=== PATIENT | male | born 1940 | race Caucasian/White ===

== ENCOUNTER 2017-06-24 02:14 | Outpatient (CLI) | payer MEDICARE, MEDICAID | END 2017-06-24 23:59 | disposition home or self-care (01) | LOC: DIABETIC 02:14 | PROVIDERS: ATTEND Specialist | DX: E11.65 Type 2 diabetes mellitus with hyperglycemia (principal); I10 Essential (primary) hypertension; F17.200 Nicotine dependence, unspecified, uncomplicated | CPT/HCPCS: G0108 ==

== ENCOUNTER 2017-08-05 10:02 | Day surgery (SDC) | payer MEDICARE, MEDICAID ==
[2017-07-31 13:16] LABS: BASOPHILS % (AUTO) 0.4 % (0-1); EOSINOPHILS # (AUTO) 0.2 X10'3 (0-0.9); EOSINOPHILS % (AUTO) 2.5 % (0-6); HEMATOCRIT 42.8 % (42.0-52.0); HEMOGLOBIN 14.5 g/dl (14.0-17.9); LYMPHOCYTES # (AUTO) 0.7 X10'3 (1.1-4.8); LYMPHOCYTES % (AUTO) 8.2 % (21-51); MEAN CORPUSCULAR HEMOGLOBIN 29.3 PG (27.0-31.0); MEAN CORPUSCULAR VOLUME 86.1 FL (78-98); MEAN PLATELET VOLUME 7.2 FL (7.4-10.4); MONOCYTES # (AUTO) 0.7 X10'3 (0-0.9); MONOCYTES % (AUTO) 8.5 % (2-12); NEUTROPHILS # (AUTO) 6.4 X10'3 (1.8-7.7); NEUTROPHILS % (AUTO) 80.4 % (42-75); PLATELET COUNT 209 X10'3 (140-440); RED BLOOD COUNT 4.96 X10'6 (4.70-6.10); RED CELL DISTRIBUTION WIDTH 14.1 % (11.5-14.5)
[2017-07-31 13:27] LABS: PARTIAL THROMBOPLASTIN TIME 27 SECONDS (22-32); PROTHROMBIN TIME 10.1 SECONDS (9.0-12.0)
[2017-07-31 13:31] LABS: ALANINE AMINOTRANSFERASE 24 U/L (12-78); ALBUMIN 3.2 G/DL (3.4-5.0); ALBUMIN/GLOBULIN RATIO 0.8 (1.1-1.5); ALKALINE PHOSPHATASE 117 IU/L (46-116); ANION GAP 8 (8-16); ASPARTATE AMINO TRANSFERASE 16 U/L (10-37); BILIRUBIN,TOTAL 0.5 MG/DL (0.1-1.0); BLOOD UREA NITROGEN 30 MG/DL (7-18); BUN/CREATININE RATIO 17.4 (5.4-32.0); CALCIUM 8.8 MG/DL (8.5-10.1); CHLORIDE 109 MMOL/L (99-107); CREATININE 1.72 MG/DL (0.60-1.10); GLUCOSE 92 MG/DL (70-104); POTASSIUM 4.3 MMOL/L (3.5-5.1); SODIUM 146 MMOL/L (135-145); TOTAL CARBON DIOXIDE 29.2 MMOL/L (24-32); TOTAL PROTEIN 7.2 G/DL (6.4-8.2); eGFR 39 ML/MIN
[~2017-08-05] VITALS: Ht 172.7 cm; Wt 102.3 kg
[2017-08-05] VITALS (12 sets, daily range): BP systolic 142–179; BP diastolic 59–93
[2017-08-05] MEDS ORDERED: normal saline 1000ml 1,000 ML IV SCH ×2 (10:40→14:20)
[2017-08-05] MEDS ORDERED: nitroGLYCERIN 0.4mg SUBLingual tab SL PRN (10:40)
[2017-08-05] MEDS ORDERED: LORazepam 0.5 MG tablet PO PRN (10:40)
[2017-08-05] MEDS ORDERED: diphenhydrAMINE 25mg capsule PO PRN (10:40)
[2017-08-05] MEDS ORDERED: ATOR20TA PO (11:45)
[2017-08-05] MEDS ORDERED: OXYB5TAB11 PO (11:45)
[2017-08-05] MEDS ORDERED: PIOG45TA19 PO (11:45)
[2017-08-05] MEDS ORDERED: SIMV20TA5 PO (11:45)
[2017-08-05] MEDS ORDERED: HYDR12.5 PO (11:45)
[2017-08-05] MEDS ORDERED: LINA5TAB4 PO (11:45)
[2017-08-05] MEDS ORDERED: ASPI-12 PO (11:45)
[2017-08-05] MEDS ORDERED: ENAL20TA75 PO (11:45)
[2017-08-05] MEDS ORDERED: NIAC500C12 PO (11:45)
[2017-08-05] MEDS ORDERED: heparin 1,000 UNITS/NS 500ml 500 ML ONE ×2 (11:46)
[2017-08-05] MEDS ORDERED: midazolam 2 mg/2 ml injection ONE (11:46)
[2017-08-05] MEDS ORDERED: fentaNYL/PF 50MCG/1 ML 2ML syringe ONE (11:46)
[2017-08-05] MEDS ORDERED: iohexol 350MG/ML 100ml bottle IV ONE ×2 (11:46→13:01)
[2017-08-05] MEDS ORDERED: iohexol 350 MG/ML 50ML vial IV ONE ×2 (11:46→12:50)
[2017-08-05] MEDS ORDERED: LIDOcaine 1%/PF (10mg/ml) 5ml vial ONE ×2 (11:46→12:40)
[2017-08-05] MEDS ORDERED: nitroGLYCERIN-Tridil 50MG/D5W 250 ML IV ONE (12:34)
[2017-08-05] MEDS ORDERED: verapamil 2.5 mg/ml inj IV ONE (12:49)
[2017-08-05] MEDS ORDERED: heparin 1,000unit/ml 10ml vial 0 ML ONE (12:49)
[2017-08-05] MEDS ORDERED: hydrALAZINE 20mg/ml inj. IV ONE (13:26)
[2017-08-05] MEDS ORDERED: ondansetron/PF 4mg/2ml inj IV PRN (14:20)
[2017-08-05] MEDS ORDERED: OXAZEpam 15mg capsule PO PRN (14:20)
[2017-08-05] MEDS ORDERED: HYDROcodone/acetaminophen 5mg/325mg tablet PO PRN (14:20)
[2017-08-05] MEDS ORDERED: HYDROcodone/acetaminophen 10/325mg tab PO PRN (14:20)
[2017-08-05] MEDS ORDERED: proCHLORperazine 10 MG/2 ml inj IV PRN (14:20)
== END 2017-08-05 20:00 | disposition home or self-care (01) ==
LOC: SSTAY O 10:02
PROVIDERS: ATTEND Internal Medicine Cardiovascular Disease
DX: I25.10 Atherosclerotic heart disease of native coronary artery without angina pectoris (principal); I10 Essential (primary) hypertension; E78.5 Hyperlipidemia, unspecified; E11.9 Type 2 diabetes mellitus without complications; I65.21 Occlusion and stenosis of right carotid artery; I70.203 Unspecified atherosclerosis of native arteries of extremities, bilateral legs; I77.89 Other specified disorders of arteries and arterioles; Z86.73 Personal history of transient ischemic attack (TIA), and cerebral infarction without residual deficits; Z79.82 Long term (current) use of aspirin; Z95.1 Presence of aortocoronary bypass graft; Z87.891 Personal history of nicotine dependence; Z98.890 Other specified postprocedural states; Z86.79 Personal history of other diseases of the circulatory system; Z79.899 Other long term (current) drug therapy
CPT/HCPCS: 36415; 71046; 75630; 80053; 82948; 85025; 85610; 85730; 93458; 99152; 99153; A6257; C1769; J0360; J1644; J2001; J2250; J3010; J3490; J7030; Q0163; Q9967

== ENCOUNTER 2018-01-05 01:23 | Outpatient (CLI) | payer MEDICARE, MEDICAID ==
[~2018-01-05 01:23] MED LIST: ASPI-12 PO; ATOR20TA PO; ENAL20TA75 PO; HYDR12.5 PO; LINA5TAB4 PO; NIAC500C12 PO; OXYB5TAB11 PO; PIOG45TA19 PO; SIMV20TA5 PO
== END 2018-01-05 23:59 | disposition home or self-care (01) ==
LOC: DIABETIC 01:23
PROVIDERS: ATTEND Specialist
DX: E11.65 Type 2 diabetes mellitus with hyperglycemia (principal); I10 Essential (primary) hypertension; Z79.899 Other long term (current) drug therapy
CPT/HCPCS: G0108

== ENCOUNTER 2018-04-07 01:19 | Outpatient (CLI) | payer MEDICARE, MEDICAID | END 2018-04-07 23:59 | disposition home or self-care (01) | LOC: DIABETIC 01:19 | PROVIDERS: ATTEND Specialist | DX: E11.65 Type 2 diabetes mellitus with hyperglycemia (principal); I10 Essential (primary) hypertension; Z79.82 Long term (current) use of aspirin | CPT/HCPCS: G0108 ==

== ENCOUNTER 2018-07-13 04:19 | Outpatient (CLI) | payer MEDICARE, MEDICAID | END 2018-07-13 23:59 | disposition home or self-care (01) | LOC: DIABETIC 04:19 | PROVIDERS: ATTEND Specialist | DX: E11.65 Type 2 diabetes mellitus with hyperglycemia (principal); I10 Essential (primary) hypertension; Z79.82 Long term (current) use of aspirin | CPT/HCPCS: G0108 ==

== ENCOUNTER 2018-10-13 01:56 | Outpatient (CLI) | payer MEDICARE, MEDICAID | END 2018-10-13 23:59 | disposition home or self-care (01) | LOC: DIABETIC 01:56 | PROVIDERS: ATTEND Specialist | DX: E11.65 Type 2 diabetes mellitus with hyperglycemia (principal); I10 Essential (primary) hypertension; Z86.73 Personal history of transient ischemic attack (TIA), and cerebral infarction without residual deficits; Z79.82 Long term (current) use of aspirin | CPT/HCPCS: G0108 ==

== ENCOUNTER 2019-03-14 16:22 | Emergency (ER) | payer MEDICARE, MEDICAID ==
[~2019-03-14] VITALS: Ht 172.7 cm; Wt 88.6 kg
[~2019-03-14 16:22] MED LIST changes: -OXYB5TAB11 PO; +OXYB5TAB16 PO
[2019-03-14 16:31] VITALS: BP 116/62
--- NOTE | 2019-03-14 18:29 | NUR ---
called joana to nurse christina dias pt that he is going back and catheter is removed and culture sample is sent glenda the lab.nurse denies any concern or question.
--- NOTE | 2019-03-14 19:53 | NUR ---
pt still waiting for ambulance .ambulance busy rgt now.
== END 2019-03-15 00:11 ==
LOC: ER 16:23
DX: T82.7XXA Infection and inflammatory reaction due to other cardiac and vascular devices, implants and grafts, initial encounter (principal); Z99.2 Dependence on renal dialysis; Z79.82 Long term (current) use of aspirin; Z79.899 Other long term (current) drug therapy; Y83.8 Other surgical procedures as the cause of abnormal reaction of the patient, or of later complication, without mention of misadventure at the time of the procedure; Y92.89 Other specified places as the place of occurrence of the external cause
CPT/HCPCS: 87070; 99284

== ENCOUNTER 2019-03-18 08:49 | Day surgery (SDC) | payer OTHER, MEDICAID ==
[~2019-03-18 08:49] MED LIST changes: +SIMV-42 PO; -SIMV20TA5 PO
[2019-03-18] MEDS ORDERED: LIDOcaine 1%/PF 5ML 10 MG/ML VIAL ONE (09:31)
[2019-03-18] MEDS ORDERED: heparin 1,000unit/ml 10ml vial 10 ML ONE (09:41)
[2019-03-18] MEDS ORDERED: fentaNYL/PF 50MCG/1 ML 2ML syringe ONE (09:41)
[2019-03-18] MEDS ORDERED: midazolam 2 mg/2 ml injection ONE (09:41)
[2019-03-18 10:30] VITALS: BP 117/74
[2019-03-18 10:45] VITALS: BP 118/69
[2019-03-18 11:00] VITALS: BP 122/68
[2019-03-18 11:15] VITALS: BP 122/66
[2019-03-18 11:30] VITALS: BP 116/63
[2019-03-18 20:59] VITALS: BP 111/69
== END 2019-03-18 11:45 ==
LOC: SSTAY O 08:49
PROVIDERS: ATTEND Radiology Diagnostic Radiology
DX: E11.22 Type 2 diabetes mellitus with diabetic chronic kidney disease (principal); I12.0 Hypertensive chronic kidney disease with stage 5 chronic kidney disease or end stage renal disease; N18.6 End stage renal disease; I25.10 Atherosclerotic heart disease of native coronary artery without angina pectoris; I69.354 Hemiplegia and hemiparesis following cerebral infarction affecting left non-dominant side; Z99.3 Dependence on wheelchair; Z85.528 Personal history of other malignant neoplasm of kidney; Z79.899 Other long term (current) drug therapy; Z98.49 Cataract extraction status, unspecified eye; Z90.5 Acquired absence of kidney; Z87.891 Personal history of nicotine dependence
CPT/HCPCS: 36558; 76937; 77001; 99152; 99153; C1750; C1894; J1644; J2250; J3010; A9270

== ENCOUNTER 2019-05-04 11:54 | Day surgery (SDC) | payer MEDICARE, MEDICAID ==
[~2019-05-04] VITALS: Ht 172.7 cm; Wt 64.9 kg
[2019-05-04] MEDS ORDERED: normal saline 1000ml 1,000 ML IV SCH (12:20)
[2019-05-04 12:21] VITALS: BP 129/68
[2019-05-04] MEDS ORDERED: PRAV40TA PO (12:45)
[2019-05-04] MEDS ORDERED: FAMO-128 PO (12:45)
[2019-05-04] MEDS ORDERED: ASCO500C15 PO (12:45)
[2019-05-04] MEDS ORDERED: DOCU100C41 PO (12:45)
[2019-05-04 13:08] LABS: BASOPHILS # (AUTO) 0.1 X10'3 (0-0.2); BASOPHILS % (AUTO) 1.2 % (0-1); EOSINOPHILS # (AUTO) 0.4 X10'3 (0-0.9); EOSINOPHILS % (AUTO) 3.9 % (0-6); HEMATOCRIT 30.2 % (42.0-52.0); HEMOGLOBIN 9.6 g/dl (14.0-17.9); LYMPHOCYTES # (AUTO) 1.4 X10'3 (1.1-4.8); LYMPHOCYTES % (AUTO) 14.9 % (21-51); MEAN CORPUSCULAR HEMOGLOBIN 25.6 PG (27.0-31.0); MEAN CORPUSCULAR HGB CONC 31.8 g/dL (33.0-36.5); MEAN CORPUSCULAR VOLUME 80.4 FL (78-98); MEAN PLATELET VOLUME 6.2 FL (7.4-10.4); MONOCYTES # (AUTO) 0.6 X10'3 (0-0.9); MONOCYTES % (AUTO) 7.1 % (2-12); NEUTROPHILS # (AUTO) 6.6 X10'3 (1.8-7.7); NEUTROPHILS % (AUTO) 72.9 % (42-75); PLATELET COUNT 258 X10'3 (140-440); RED BLOOD COUNT 3.76 X10'6 (4.70-6.10); RED CELL DISTRIBUTION WIDTH 21.9 % (11.5-14.5); WHITE BLOOD COUNT 9.1 X10'3 (4.5-11.0)
[2019-05-04] MEDS ORDERED: fentaNYL/PF 50MCG/1 ML 2ML syringe IV PRN (13:50)
[2019-05-04] MEDS ORDERED: heparin 1,000 units/ml 10ml inj ICATH ONE (13:50)
[2019-05-04] MEDS ORDERED: LIDOcaine 1% 30ml preserv. free vial SQ ONE (13:50)
[2019-05-04] MEDS ORDERED: heparin 1,000unit/ml 10ml vial 10 ML ONE (13:57)
[2019-05-04] MEDS ORDERED: fentaNYL/PF 50MCG/1 ML 2ML syringe ONE ×2 (13:58→14:33)
[2019-05-04] MEDS ORDERED: LIDOcaine 1%/PF 5ML 10 MG/ML VIAL ONE (13:58)
[2019-05-04 14:54] LABS: ANISOCYTOSIS 3+; PLATELET ESTIMATE NORMAL
[2019-05-04 14:55] LABS: MICROCYTOSIS 1+
[2019-05-04 15:00] VITALS: BP 161/84
[2019-05-04 15:15] VITALS: BP 161/84
[2019-05-04 15:30] VITALS: BP 158/82
--- NOTE | 2019-05-04 16:26 | NUR ---
late physical assessment charted
== END 2019-05-04 15:35 | disposition home or self-care (01) ==
LOC: SSTAY O 11:54
PROVIDERS: ATTEND Radiology Diagnostic Radiology
DX: T82.49XA Other complication of vascular dialysis catheter, initial encounter (principal); N18.9 Chronic kidney disease, unspecified; Z79.82 Long term (current) use of aspirin; Z79.899 Other long term (current) drug therapy; Y83.8 Other surgical procedures as the cause of abnormal reaction of the patient, or of later complication, without mention of misadventure at the time of the procedure; Y92.89 Other specified places as the place of occurrence of the external cause
CPT/HCPCS: 36415; 36581; 77001; 82948; 85025; 99152; 99153; C1750; C1769; J1644; J3010; J7030; A9270

== ENCOUNTER 2019-05-13 09:49 | Day surgery (SDC) | payer MEDICARE, MEDICAID ==
[~2019-05-13] VITALS: Ht 172.7 cm; Wt 86.2 kg
[~2019-05-13 09:49] MED LIST changes: +ASCO500C15 PO; -ATOR20TA PO; +DOCU100C41 PO; -ENAL20TA75 PO; +FAMO-128 PO; -HYDR12.5 PO; -LINA5TAB4 PO; -NIAC500C12 PO; -OXYB5TAB16 PO; -PIOG45TA19 PO; +PRAV40TA PO; -SIMV-42 PO
[2019-05-13 10:44] VITALS: BP 123/61
[2019-05-13] MEDS ORDERED: LANTUS SQ (10:53)
[2019-05-13] MEDS ORDERED: ACET-2119 PO (11:14)
[2019-05-13] MEDS ORDERED: VIT1TABL48 PO (11:14)
[2019-05-13] MEDS ORDERED: INSU100I31 IJ (11:14)
[2019-05-13] MEDS ORDERED: midazolam 2 mg/2 ml injection ONE (11:31)
[2019-05-13] MEDS ORDERED: fentaNYL/PF 50MCG/1 ML 2ML syringe ONE (11:31)
[2019-05-13] MEDS ORDERED: LIDOcaine 1%/PF 5ML 10 MG/ML VIAL ONE (11:31)
[2019-05-13] MEDS ORDERED: heparin 1,000unit/ml 10ml vial 10 ML ONE (11:31)
[2019-05-13] MEDS ORDERED: fentaNYL/PF 50MCG/1 ML 2ML syringe IV PRN (11:35)
[2019-05-13] MEDS ORDERED: midazolam 2 mg/2 ml injection IV PRN (11:35)
[2019-05-13] MEDS ORDERED: heparin 1,000 units/ml 10ml inj ICATH ONE (11:35)
[2019-05-13] MEDS ORDERED: LIDOcaine 1%/PF 5ML 10 MG/ML VIAL SQ ONE (11:35)
[2019-05-13 13:05] VITALS: BP 124/58
[2019-05-13 13:20] VITALS: BP 132/67
[2019-05-13 13:30] VITALS: BP 127/65
== END 2019-05-13 14:20 | disposition home or self-care (01) ==
LOC: SSTAY O 09:49
PROVIDERS: ATTEND Radiology Diagnostic Radiology
DX: N18.9 Chronic kidney disease, unspecified (principal); Z79.899 Other long term (current) drug therapy
CPT/HCPCS: 36558; 36589; 76937; 77001; 82948; 99152; 99153; C1769; C1894; J1644; J2250; J3010; A9270

== ENCOUNTER 2019-05-18 11:50 | Day surgery (SDC) | payer MEDICARE, MEDICAID ==
[~2019-05-18 11:50] MED LIST changes: +ACET-2119 PO; +INSU100I31 IJ; +VIT1TABL48 PO
[2019-05-18 12:30] VITALS: BP 153/79
[2019-05-18] MEDS ORDERED: heparin 1,000 units/ml 10ml inj ICATH ONE ×2 (12:40→12:50)
[2019-05-18] MEDS ORDERED: fentaNYL/PF 50MCG/1 ML 2ML syringe IV PRN ×2 (12:40→12:50)
[2019-05-18] MEDS ORDERED: LIDOcaine 1%/PF 5ML 10 MG/ML VIAL SQ ONE ×2 (12:40→12:50)
[2019-05-18] MEDS ORDERED: midazolam 2 mg/2 ml injection IV PRN ×2 (12:40→12:50)
[2019-05-18] MEDS ORDERED: LIDOcaine 1%/PF 5ML 10 MG/ML VIAL ONE (13:02)
[2019-05-18] MEDS ORDERED: heparin 1,000unit/ml 10ml vial 10 ML ONE (13:12)
[2019-05-18] MEDS ORDERED: midazolam 2 mg/2 ml injection ONE (13:13)
[2019-05-18] MEDS ORDERED: fentaNYL/PF 50MCG/1 ML 2ML syringe ONE (13:13)
[2019-05-18] MEDS ORDERED: tPA-cathflo 2 MG/2 ml IV flush ONE (13:25)
[2019-05-18 14:04] VITALS: BP 157/76
[2019-05-18 14:19] VITALS: BP 152/69
[2019-05-18 14:34] VITALS: BP 153/76
== END 2019-05-18 15:05 | disposition home or self-care (01) ==
LOC: SSTAY O 11:50
PROVIDERS: ATTEND Radiology Diagnostic Radiology
DX: N18.9 Chronic kidney disease, unspecified (principal); Z98.890 Other specified postprocedural states; Z79.899 Other long term (current) drug therapy
CPT/HCPCS: 36558; 36589; 76937; 77001; 82948; 99152; 99153; C1750; C1769; C1894; J1644; J2250; J2997; J3010; A9270

== ENCOUNTER 2019-07-21 14:43 | Day surgery (SDC) | payer MEDICARE, MEDICAID ==
[~2019-07-21] VITALS: Ht 172.7 cm; Wt 88.5 kg
[2019-07-21] MEDS ORDERED: ceFAZolin/D5W- 1GM premix 50 ML IV ONE (15:10)
[2019-07-21 15:15] VITALS: BP 120/68
[2019-07-21] MEDS ORDERED: heparin 1,000unit/ml 10ml vial 10 ML ONE (15:21)
[2019-07-21] MEDS ORDERED: fentaNYL/PF 50MCG/1 ML 2ML syringe ONE (15:21)
[2019-07-21] MEDS ORDERED: LIDOcaine 1%/PF 5ML 10 MG/ML VIAL ONE (15:21)
[2019-07-21] MEDS ORDERED: LINA5TAB4 PO (15:34)
[2019-07-21] MEDS ORDERED: PIOG45TA5 PO (15:35)
[2019-07-21] MEDS ORDERED: ATOR20TA PO (15:35)
[2019-07-21] MEDS ORDERED: CALC667T6 PO (15:37)
[2019-07-21] MEDS ORDERED: ASPI-1264 PO (15:37)
[2019-07-21 16:10] VITALS: BP 135/76
[2019-07-21 16:20] VITALS: BP 135/70
== END 2019-07-21 16:20 | disposition home or self-care (01) ==
LOC: SSTAY O 14:43
PROVIDERS: ATTEND Radiology Vascular & Interventional Radiology
DX: Z45.2 Encounter for adjustment and management of vascular access device (principal); Z79.82 Long term (current) use of aspirin; Z79.899 Other long term (current) drug therapy
CPT/HCPCS: 36581; 77001; C1750; C1769; J1644; J3010; A9270

== ENCOUNTER 2019-07-30 22:28 | Emergency (ER) | payer MEDICARE, MEDICAID ==
[~2019-07-30] VITALS: Ht 172.7 cm; Wt 88.0 kg
[~2019-07-30 22:28] MED LIST changes: -ASPI-12 PO; +ASPI-1264 PO; +ATOR20TA PO; +CALC667T6 PO; -DOCU100C41 PO; -FAMO-128 PO; -INSU100I31 IJ; +LINA5TAB4 PO; +PIOG45TA5 PO; -PRAV40TA PO
[2019-07-30 23:54] VITALS: BP 119/60
== END 2019-07-30 23:57 | disposition home or self-care (01) ==
LOC: ER 22:29
DX: T82.898A Other specified complication of vascular prosthetic devices, implants and grafts, initial encounter (principal); Z79.82 Long term (current) use of aspirin; Z79.899 Other long term (current) drug therapy; Y83.8 Other surgical procedures as the cause of abnormal reaction of the patient, or of later complication, without mention of misadventure at the time of the procedure; Y92.89 Other specified places as the place of occurrence of the external cause
CPT/HCPCS: 99284

== ENCOUNTER 2019-08-22 04:08 | Outpatient (CLI) | payer MEDICARE, MEDICAID | END 2019-08-22 23:59 | disposition home or self-care (01) | LOC: DIABETIC 04:08 | PROVIDERS: ATTEND Family Medicine | DX: E11.65 Type 2 diabetes mellitus with hyperglycemia (principal) | CPT/HCPCS: G0108 ==